=== PATIENT | male | born 1990 | race Caucasian/White ===

== ENCOUNTER 2023-03-07 04:33 | Emergency (ER) | payer MEDICAID ==
[~2023-03-07] VITALS: Ht 175.3 cm; Wt 64.0 kg
[2023-03-07 04:44] VITALS: BP 157/106; PULSE 77; RESP 18; TEMP 98.3; O2SAT 97
[2023-03-07 05:28] LABS: BASOPHILS % 0.5 % (0.0-2.0); EOSINOPHILS % 2.3 % (0.0-5.0); HEMATOCRIT. 40.1 % (42.0-52.0); HEMOGLOBIN. 13.5 g/dL (14.0-18.0); LYMPHOCYTES % 22.2 % (20.0-50.0); MEAN CORPUSCULAR VOLUME 95.1 fL (80.0-94.0); MEAN PLATELET VOLUME 8.3 fl (7.4-10.4); MONOCYTES % 8.1 % (2.0-8.0); NEUTROPHILS % 66.9 % (40.0-76.0); PLATELET 285 x1000/uL (130-400); RED BLOOD CELL COUNT 4.22 mill/uL (4.7-6.1)
[2023-03-07 05:52] LABS: CHLORIDE 109 mEq/L (98-107)
== END 2023-03-07 08:01 | disposition left against medical advice (07) ==
LOC: ER 04:33
DX: Z53.21 Procedure and treatment not carried out due to patient leaving prior to being seen by health care provider (principal)
CPT/HCPCS: 36415; 80053; 84484; 85025; 93005; 99281